=== PATIENT | female | born 1970 ===

== ENCOUNTER 2018-10-27 10:49 | Outpatient (CLI) | payer OTHER | END 2018-10-27 10:50 | disposition home or self-care (01) | LOC: C.LAB 10:49 | DX: E11.65 Type 2 diabetes mellitus with hyperglycemia (principal); E78.2 Mixed hyperlipidemia; Z13.9 Encounter for screening, unspecified; Z12.11 Encounter for screening for malignant neoplasm of colon ==

== ENCOUNTER 2018-11-02 11:02 | Outpatient (CLI) | payer OTHER | END 2018-11-02 11:03 | disposition home or self-care (01) | LOC: C.LAB 11:02 | DX: E11.65 Type 2 diabetes mellitus with hyperglycemia (principal); E78.2 Mixed hyperlipidemia; Z13.9 Encounter for screening, unspecified; Z12.11 Encounter for screening for malignant neoplasm of colon ==

== ENCOUNTER 2018-11-08 10:51 | Outpatient (CLI) | payer OTHER | END 2018-11-08 10:52 | disposition home or self-care (01) | LOC: C.MAMMO 10:51 | DX: Z12.31 Encounter for screening mammogram for malignant neoplasm of breast (principal) ==